=== PATIENT | female | born 1995 | race Caucasian/White ===

== ENCOUNTER 2019-04-23 09:18 | Emergency (ER) | payer SELFPAY ==
--- NOTE | 2019-04-23 09:25 | NUR ---
Attempted to triage pt, pt was not found in ER waiting room or outside ER. Per ER admitting pt decided to leave.
== END 2019-04-23 09:36 | disposition left against medical advice (07) ==
LOC: ER 09:18
DX: Z53.21 Procedure and treatment not carried out due to patient leaving prior to being seen by health care provider (principal)